=== PATIENT | female | born 1960 | race Caucasian/White ===

== ENCOUNTER → 2019-02-18 | Outpatient (CLI) | payer OTHER ==
--- NOTE | 2019-02-18 10:38 | Diagnostic Imaging Report ---
Right knee MRI without contrast. History: Knee pain. Decreased range of motion. Pain not responding to conservative management. Pain worse with walking Comparison: None. Technique: Multiplanar multi-sequence MRI of the knee without contrast. Findings: Medial compartment: There is a complex tear involving the posterior horn and body segments of the medial meniscus best seen on coronal image 14. There is a bone contusion/nondisplaced subchondral microtrabecular fracture at the periphery of the medial tibial plateau with marrow edema. The articular cartilage surfaces are thinned with regions of fraying and deep fissuring. The medial collateral ligament complex is intact. Lateral compartment: No meniscal tear or cartilage abnormality. The LCL complex is normal. Intercondylar notch: The ACL and PCL are intact. Patellofemoral compartment: No chondromalacia or patellar dislocation. Extensor mechanism: The quadriceps and patellar tendons are normal. Other findings: There is a joint effusion and synovitis. There is no acute fracture, subluxation or avascular necrosis. There is a lobulated septated Her's cyst with evidence of partial rupture into the posterior soft tissues. IMPRESSION: Complex medial meniscus tear with bone contusion/nondisplaced subchondral microtrabecular fracture at the periphery of the medial tibial plateau with bone marrow edema. Joint effusion, synovitis and lobulated septated Her's cyst with evidence of partial rupture into the posterior soft tissues. Signed by: Dr. Marcelino Rutledge M.D. on 02/18/2019 10:35 AM
== END ==
LOC: MRI 08:54
PROVIDERS: ATTEND Specialist
DX: M25.562 Pain in left knee (principal); M25.561 Pain in right knee